=== PATIENT | male | born 1995 | race African-American/Black ===

== ENCOUNTER 2019-01-12 20:05 | Emergency (ER) | payer SELFPAY ==
[~2019-01-12] VITALS: Ht 180.3 cm; Wt 77.1 kg
[2019-01-12 20:05] VITALS: BP 168/86
[2019-01-12] MEDS ORDERED: KETOROLAC 30 MG/ML VIAL. IM ONE (21:15)
[2019-01-12] MEDS ORDERED: ONDANSETRON ODT 4 MG TAB.RAPDIS. PO ONE (21:15)
[2019-01-12] MEDS ORDERED: BUTALB/APAP/CAFEIN 50/325/40MG TABLET. PO ONE (21:15)
[2019-01-12] MEDS ORDERED: DEXAMETHASONE 4 MG TABLET PO ONE (21:15)
[2019-01-12] MEDS ORDERED: ONDA4TAB12 PO (21:28)
[2019-01-12] MEDS ORDERED: BUTA1TAB23 PO (21:28)
--- NOTE | 2019-01-12 21:28 | PHYS DOC ---
Past Medical History Past Medical History: Asthma Past Surgical History: No Surgical History Alcohol Use: None Drug Use: None Adult General Chief Complaint Chief Complaint: HEADACHE HPI HPI Patient is a 23 year old male who presented to the emergency department for headache. This headache started 2 days ago. He has it as a stabbing pain located in his right temporal and right eye. He says he has sensation of his eye popping out of his head when the pains is worse. Makes the pain worse. He's attempted Tylenol and ibuprofen at home with no relief. He denies any trauma to the area. Additionally denies any vision change, lightheadedness, dizziness or pain worse in the morning.[] Review of Systems Review of Systems Constitutional: Denies fever or chills [] Eyes: Denies change in visual acuity, redness, or eye pain [] HENT: Denies nasal congestion or sore throat [] Respiratory: Denies cough or shortness of breath [] Cardiovascular: Denies chest pain or palpitations[] GI: Denies abdominal pain, nausea, vomiting [] : Denies dysuria or hematuria [] Musculoskeletal: Denies back pain or joint pain [] Integument: Denies rash or skin lesions [] Neurologic: Reports headache, denies focal weakness or sensory changes [] Complete systems were reviewed and found to be within normal limits, except as documented in this note. Current Medications Current Medications Current Medications Medications (Trade) Dose Ordered Sig/Kelly Start Time Stop Time Status Last Admin Dose Admin Acetaminophen/ Butalbital/ Caffeine (Fioricet) 1 tab 1X ONCE 01/12/19 21:15 01/12/19 21:16 DC 01/12/19 21:26 1 TAB Dexamethasone (Decadron) 10 mg 1X ONCE 01/12/19 21:15 01/12/19 21:16 DC 01/12/19 21:26 10 MG Ketorolac Tromethamine (Toradol 30mg Vial) 30 mg 1X ONCE 01/12/19 21:15 01/12/19 21:16 DC 01/12/19 21:27 30 MG Ondansetron HCl (Zofran Odt) 4 mg 1X ONCE 01/12/19 21:15 01/12/19 21:16 DC 01/12/19 21:26 4 MG Allergies Allergies Allergies Coded Allergies Type Severity Reaction Last Updated Verified No Known Drug Allergies 10/27/14 No Physical Exam Physical Exam Constitutional: No acute distress, non-toxic appearance. [] HENT: Normocephalic, atraumatic, bilateral external ears normal, tympanic membranes clear bilaterally, no maxillary or facial sinus tenderness. [] Eyes: EOMI, no discharge. [] Neck: Normal range of motion, no tenderness. [] Cardiovascular: Heart rate regular rhythm, no murmur [] Lungs & Thorax: Bilateral breath sounds clear to auscultation, no rhonchi, rales or wheezes [] Abdomen: Bowel sounds normal, soft, no tenderness, no rebound, rigidity or guarding. [] Skin: Warm, dry, no erythema. [] Back: No tenderness, no CVA tenderness. [] Extremities: ROM intact, no edema. [] Neurologic: Alert and oriented X 3, normal motor function, no focal deficits noted. [] Psychologic: Affect normal, mood normal. [] Current Patient Data Vital Signs Vital Signs Date Time Temp Pulse Resp B/P (MAP) Pulse Ox O2 Delivery O2 Flow Rate FiO2 01/12/19 20:05 98.3 58 18 168/86 (113) 99 98.3 EKG EKG [] Radiology/Procedures Radiology/Procedures [] Course & Med Decision Making Course & Med Decision Making 21-year-old male presenting to emergency for headache. He denied any trauma to the area. No focal neurological deficits are noted. Symptomatic treatment provided with interval improvement. Patient stable for discharge with outpatient follow-up with PCP. Discussed findings and plan with patient and family, who acknowledge understanding and agreement. (See chart for details) [] Dragon Disclaimer Dragon Disclaimer This electronic medical record was generated, in whole or in part, using a voice recognition dictation system. Departure Departure Impression: Primary Impression: Headache Disposition: HOME, SELF-CARE Condition: STABLE Referrals: NO PCP (PCP) YVONNE PEREZ MD Patient Instructions: Headache, FAQs Scripts Ondansetron (ONDANSETRON ODT) 4 Mg Tab.rapdis 1 TAB PO PRN Q6-8HRS for VOMITING, #16 TAB Prov: FERNANDA DANIELS DO 01/12/19 Butalb/Acetaminophen/Caffeine ([id number]) 1 Each Tablet 1 EACH PO Q6HRS PRN for HEADACHE, #14 TAB Prov: DANIELS,FERNANDA R DO 01/12/19 Problem Qualifiers Primary Impression: Headache Headache type: unspecified Headache chronicity pattern: acute headache Intractability: not intractable Qualified Codes: R51 - Headache FERNANDA DANIELS DO Jan 12, 2019 21:28
== END 2019-01-12 22:13 | disposition home or self-care (01) ==
LOC: ER 20:05
DX: R51 Headache (principal); H57.11 Ocular pain, right eye; J45.909 Unspecified asthma, uncomplicated
CPT/HCPCS: 96372; 99284; J1885; J8540; Q0162

== ENCOUNTER 2019-06-14 21:21 | Emergency (ER) | payer SELFPAY ==
[~2019-06-14] VITALS: Ht 180.3 cm; Wt 77.1 kg
[~2019-06-14 21:21] MED LIST: BUTA1TAB23 PO; ONDA4TAB12 PO
[2019-06-14 21:25] VITALS: BP 141/81
--- NOTE | 2019-06-14 22:00 | PHYS DOC ---
Past Medical History Past Medical History: Asthma Past Surgical History: No Surgical History Alcohol Use: None Drug Use: None Adult General Chief Complaint Chief Complaint: SORE THROAT HPI HPI Patient is a 24 year old male that presents with sore throat, nausea, vomiting, runny nose, congestion, ear pain. This been ongoing for last several days. Rates his pain as 5 out of 10 in severity. Not taking medicine prior to arrival. He is able to keep food down at home to states he feels nauseous after he eats. Review of Systems Review of Systems Constitutional: Denies fever or chills [] Eyes: Denies change in visual acuity, redness, or eye pain [] HENT: Reports nasal congestion and sore throat [] Respiratory: Reports cough denies shortness of breath [] Cardiovascular: No additional information not addressed in HPI [] GI: Reports nausea. Denies abdominal pain, bloody stools or diarrhea [] : Denies dysuria or hematuria [] Musculoskeletal: Denies back pain or joint pain [] Integument: Denies rash or skin lesions [] Neurologic: Denies headache, focal weakness or sensory changes [] Endocrine: Denies polyuria or polydipsia [] Complete systems were reviewed and found to be within normal limits, except as documented in this note. Allergies Allergies Allergies Coded Allergies Type Severity Reaction Last Updated Verified No Known Drug Allergies 10/27/14 No Physical Exam Physical Exam Constitutional: Well developed, well nourished, no acute distress, non-toxic appearance. [] HENT: Normocephalic, atraumatic, bilateral external ears normal, ears are unable to be visualized due to cerumen, oropharynx moist, no oral exudates, nose has mucus. Eyes: PERRLA, EOMI, conjunctiva normal, no discharge. [] Neck: Normal range of motion, no tenderness, supple, no stridor. [] Cardiovascular:Heart rate regular rhythm, no murmur [] Lungs & Thorax: Bilateral breath sounds clear to auscultation [] Abdomen: Bowel sounds normal, soft, no tenderness, no masses, no pulsatile masses. [] Skin: Warm, dry, no erythema, no rash. [] Back: No tenderness, no CVA tenderness. [] Extremities: No tenderness, no cyanosis, no clubbing, ROM intact, no edema. [] Neurologic: Alert and oriented X 3, normal motor function, normal sensory function, no focal deficits noted. [] Psychologic: Affect normal, judgement normal, mood normal. [] EKG EKG [] Radiology/Procedures Radiology/Procedures [] Course & Med Decision Making Course & Med Decision Making Pertinent Labs and Imaging studies reviewed. (See chart for details) Appears to have allergic rhinitis, will have nursing clean out ears to look at tympanic membranes. Will have start Mucinex and Zyrtec. Will also send home on Zofran. It is likely due to viral process. After nursing cleaned out cerumen it appears patient has left acute otitis media. Dragon Disclaimer Dragon Disclaimer This electronic medical record was generated, in whole or in part, using a voice recognition dictation system. Departure Departure Impression: Primary Impression: Acute otitis media Additional Impressions: Nausea Allergic rhinitis Disposition: HOME, SELF-CARE Condition: STABLE Referrals: NO PCP (PCP) Patient Instructions: Nausea, Adult, Otitis Media, Adult, [id number] Additional Instructions: Thank you for visiting [facility]. We appreciate you trusting us with your care. If any additional problems come up don't hesitate to return to visit us. Please follow up with your primary care provider so they can plan additional care if needed and know about the problem that you had. If symptoms worsen come back to the Emergency Department. Any concerning symptoms that start such as chest pain, shortness of air, weakness or numbness on one side of the body, running high fevers or any other concerning symptoms return to the ER. Please fill your medications at any pharmacy and follow the prescription instructions. You have been prescribed an antibiotic today to help fight your infection. Please take all of the antibiotic as directed. If after 48 hours the infection is not improving, please return for more care. If the infection worsens, return to ER for additional care. Please take Zyrtec and Mucinex over the counter to help with symptoms. Follow label instructions. Scripts Ondansetron (ONDANSETRON ODT) 4 Mg Tab.rapdis 1 TAB PO PRN Q6-8HRS PRN for NAUSEA, #16 TAB Prov: FERNANDA MATTHEWS APRN 06/14/19 Amoxicillin (AMOXICILLIN) 875 Mg Tablet 875 MG PO BID for 7 Days, #14 TAB 0 Refills Prov: FERNANDA MATTHEWS APRN 06/14/19 Problem Qualifiers Primary Impression: Acute otitis media Otitis media type: unspecified Qualified Codes: H66.90 - Otitis media, unspecified, unspecified ear FERNANDA MATTHEWS APRN Jun 14, 2019 21:59
[2019-06-14] MEDS ORDERED: ONDA4TAB12 PO (22:51)
[2019-06-14] MEDS ORDERED: AMOX875T PO (22:51)
== END 2019-06-14 23:00 | disposition home or self-care (01) ==
LOC: ER 21:21
DX: H66.93 Otitis media, unspecified, bilateral (principal); R11.2 Nausea with vomiting, unspecified; J45.909 Unspecified asthma, uncomplicated
CPT/HCPCS: 99283

== ENCOUNTER 2020-11-18 14:47 | Emergency (ER) | payer SELFPAY ==
[~2020-11-18] VITALS: Ht 180.3 cm; Wt 81.0 kg
[~2020-11-18 14:47] MED LIST changes: +AMOX875T PO
[2020-11-18 15:35] LABS: BILIRUBIN,URINE NEGATIVE (NEG); CLARITY,URINE CLEAR; COLOR,URINE YELLOW; NITRITE,URINE NEGATIVE (NEG); PROTEIN,URINE NEGATIVE (NEG-TRACE); UROBILINOGEN,URINE 0.2 mg/dL (0.2 mg/dL)
[2020-11-18 15:41] VITALS: BP 144/65
[2020-11-18 15:43] LABS: BACTERIA,URINE 0 /HPF (0-FEW); RBC,URINE 0 /HPF (0-2)
[2020-11-18] MEDS ORDERED: AZITHROMYCIN 250 MG TABLET. PO ONE (15:45)
[2020-11-18] MEDS ORDERED: cefTRIAXone IM 500 MG VIAL. IM ONE (15:45)
--- NOTE | 2020-11-18 15:54 | PHYS DOC ---
Past Medical History Past Medical History: Asthma Past Surgical History: No Surgical History Smoking Status: Never Smoker Alcohol Use: None Drug Use: None General Adult EDM: Chief Complaint: SEXUALLY TRANSMITTED DISEASE HPI: HPI: Patient is a 25 year old males who presents with exposure with a sexual partner that tested positive for chlamydia. Patient states he is currently having no symptoms but would like to get checked and treated. He has a history of gastroenteritis and asthma. Patient denies any pain. Review of Systems: Review of Systems: Constitutional: Denies fever or chills. [] Eyes: Denies change in visual acuity. [] HENT: Denies nasal congestion or sore throat. [] Respiratory: Denies cough or shortness of breath. [] Cardiovascular: Denies chest pain or edema. [] GI: Denies abdominal pain, nausea, vomiting, bloody stools or diarrhea. [] : Denies dysuria. + Exposure to chlamydia [] Musculoskeletal: Denies back pain or joint pain. [] Integument: Denies rash. [] Neurologic: Denies headache, focal weakness or sensory changes. [] Endocrine: Denies polyuria or polydipsia. [] Lymphatic: Denies swollen glands. [] Psychiatric: Denies depression or anxiety. [] Heart Score: Risk Factors: Risk Factors: DM, Current or recent (<one month) smoker, HTN, HLP, family history of CAD, obesity. Risk Scores: Score 0 - 3: 2.5% MACE over next 6 weeks - Discharge Home Score 4 - 6: 20.3% MACE over next 6 weeks - Admit for Clinical Observation Score 7 - 10: 72.7% MACE over next 6 weeks - Early Invasive Strategies Current Medications: Current Medications Medications (Trade) Dose Ordered Sig/Kelly Start Time Stop Time Status Last Admin Dose Admin Azithromycin (Zithromax) 1,000 mg 1X ONCE 11/18/20 15:45 11/18/20 15:46 DC Ceftriaxone Sodium (Rocephin Im) 500 mg 1X ONCE 11/18/20 15:45 11/18/20 15:46 DC Allergies: Allergies: Allergies Coded Allergies Type Severity Reaction Last Updated Verified No Known Drug Allergies 10/27/14 No Physical Exam: PE: Constitutional: Well developed, well nourished, no acute distress, non-toxic appearance. [] HENT: Normocephalic, atraumatic, bilateral external ears normal, oropharynx mois t, no oral exudates, nose normal. [] Eyes: PERRLA, EOMI, conjunctiva normal, no discharge. [] Neck: Normal range of motion, no tenderness, supple, no stridor. [] Cardiovascular:Heart rate regular rhythm, no murmur [] Lungs & Thorax: Bilateral breath sounds clear to auscultation [] Abdomen: Bowel sounds normal, soft, no tenderness, no masses, no pulsatile masses. [] Skin: Warm, dry, no erythema, no rash. [] Back: No tenderness, no CVA tenderness. [] Extremities: No tenderness, no cyanosis, no clubbing, ROM intact, no edema. [] Neurologic: Alert and oriented X 3, normal motor function, normal sensory function, no focal deficits noted. [] Psychologic: Affect normal, judgement normal, mood normal. Normal physical exam [] Current Patient Data: Labs: Laboratory Tests Test 11/18/20 15:20 Urine Collection Type Unknown Urine Color Yellow Urine Clarity Clear Urine pH 8.0 (<5.0-8.0) Urine Specific [place] 1.025 (1.000-1.030) Urine Protein Negative mg/dL (NEG-TRACE) Urine Glucose (UA) Negative mg/dL (NEG) Urine Ketones (Stick) Negative mg/dL (NEG) Urine Blood Negative (NEG) Urine Nitrite Negative (NEG) Urine Bilirubin Negative (NEG) Urine Urobilinogen Dipstick 0.2 mg/dL (0.2 mg/dL) Urine Leukocyte Esterase Small (NEG) Urine RBC 0 /HPF (0-2) Urine WBC 1-4 /HPF (0-4) Urine Squamous Epithelial Cells Occ /LPF Urine Bacteria 0 /HPF (0-FEW) Vital Signs: Vital Signs Date Time Temp Pulse Resp B/P (MAP) Pulse Ox O2 Delivery O2 Flow Rate FiO2 11/18/20 15:41 98.1 81 18 144/65 (91) 99 Room Air 98.1 EKG: EKG: [] Radiology/Procedures: Radiology/Procedures: [] Course & Med Decision Making: Course & Med Decision Making Pertinent Labs and Imaging studies reviewed. (See chart for details) See HPI. Patient has no penile discharge or sores. Patient denies abdominal pain, penile discharge, penile sores, urinary symptoms, back pain, nausea, vomiting, diarrhea, fever. Patient is treated with Rocephin and azithromycin in the ED. He is educated that he will be called in 48 hours if something comes back positive. Alert and oriented x4. Speaks in full clear sentences. Skin pink warm dry. Ambulatory to steady gait. [] Dragon Disclaimer: Dragon Disclaimer: This electronic medical record was generated, in whole or in part, using a voice recognition dictation system. Departure Departure Impression: Primary Impression: Exposure to sexually transmitted disease (STD) Disposition: 01 DC HOME SELF CARE/HOMELESS Condition: STABLE Referrals: NO PCP (PCP) Patient Instructions: Sexually Transmitted Disease Additional Instructions: Follow-up with your primary care provider if needed. Do not have sex for 10 days following treatment. Tell all sexual partners if you come back positive for any sexually transmitted diseases. SUSHILA VILLEGAS APRN Nov 18, 2020 15:54
== END 2020-11-18 16:10 | disposition home or self-care (01) ==
LOC: ER 14:47
DX: A64 Unspecified sexually transmitted disease (principal); J45.909 Unspecified asthma, uncomplicated; Z20.2 Contact with and (suspected) exposure to infections with a predominantly sexual mode of transmission
CPT/HCPCS: 81001; 87086; 87491; 87591; 96372; 99283; J0696